=== PATIENT | male | born 1970 | race Caucasian/White ===

== ENCOUNTER 2023-12-04 05:37 | Day surgery (SDC) | payer OTHER ==
[2023-12-03 15:37] LABS: BILIRUBIN,URINE NEGATIVE (Neg); CLARITY,URINE CLEAR (Clear); COLOR,URINE YELLOW (Yellow); GLUCOSE, URINE NEGATIVE (Neg); KETONES,URINE NEGATIVE (Neg); LEUKOCYTE ESTERASE ,URINE NEGATIVE (Neg); NITRITES, URINE NEGATIVE (Neg); OCCULT BLOOD,URINE NEGATIVE (Neg); PROTEIN,URINE NEGATIVE (Neg); UROBILINOGEN,URINE 0.2 E.U/dL (0.2-1.0)
[2023-12-03 15:53] LABS: UA COLLECTION TYPE NON-SPECIFIED
[2023-12-03 16:02] LABS: BASOPHILS # (AUTO) 0.1 X10'3 (0-0.2); BASOPHILS % (AUTO) 1.1 % (0-1); EOSINOPHILS # (AUTO) 0.1 X10'3 (0-0.9); EOSINOPHILS % (AUTO) 1.6 % (0-6); LYMPHOCYTES # (AUTO) 1.7 X10'3 (1.1-4.8); LYMPHOCYTES % (AUTO) 36.4 % (21-51); MEAN CORPUSCULAR HEMOGLOBIN 32.4 PG (27.0-31.0); MEAN CORPUSCULAR HGB CONC 33.8 g/dL (33.0-36.5); MEAN CORPUSCULAR VOLUME 95.8 FL (78-98); MEAN PLATELET VOLUME 7.6 FL (7.4-10.4); MONOCYTES # (AUTO) 0.4 X10'3 (0-0.9); MONOCYTES % (AUTO) 8.7 % (2-12); NEUTROPHILS # (AUTO) 2.4 X10'3 (1.8-7.7); NEUTROPHILS % (AUTO) 52.2 % (42-75); PRE OP HEMATOCRIT 42.3 % (42.0-52.0); PRE OP HEMOGLOBIN 14.3 g/dL (14.0-17.9); PRE OP PLATELET COUNT 255 X10'3 (140-440); PRE OP WHITE BLOOD COUNT 4.7 10'3 (4.8-10.8); RED BLOOD COUNT 4.41 X10'6 (4.70-6.10); RED CELL DISTRIBUTION WIDTH 12.5 % (11.5-14.5)
[2023-12-03 16:03] LABS: ALBUMIN 3.6 G/DL (3.4-5.0); ALBUMIN/GLOBULIN RATIO 0.9 (1.1-1.5); ALKALINE PHOSPHATASE 56 IU/L (46-116); BLOOD UREA NITROGEN 9 MG/DL (7-18); BUN/CREATININE RATIO 9.8 (10.0-20.0); CALCIUM 8.3 MG/DL (8.5-10.1); CHLORIDE 98 MMOL/L (99-107); CREATININE 0.92 MG/DL (0.60-1.10); PRE OP ANION GAP 3 (8-16); PRE OP AST 17 U/L (10-37); PRE OP BILIRUB, TOTAL 0.6 MG/DL (0.0-1.0); PRE OP GLUCOSE 86 MG/DL (70-104); PRE OP POTASSIUM 3.5 MMOL/L (3.4-5.1); PRE OP SODIUM 132 MMOL/L (135-145); TOTAL CARBON DIOXIDE 31.3 MMOL/L (24-32); TOTAL PROTEIN 7.5 G/DL (6.4-8.2); eGFR 86 ML/MIN
[2023-12-03 16:07] LABS: PRE OP ALT 15 U/L (30-65)
[2023-12-04] VITALS (9 sets, daily range): BP systolic 126–134; BP diastolic 75–88; PULSE 71–81; RESP 11–16; TEMP 98.7; O2SAT 95–99
[~2023-12-04] VITALS: Ht 180.3 cm; Wt 70.0 kg
[~2023-12-04 05:37] MED LIST: LISI10TA27 PO
[2023-12-04] MEDS ORDERED: BUPIVAcaine/PF 2.5mg/ml (0.25%) 10ml vial ONE (06:43)
[2023-12-04] MEDS: famotidine 20mg tablet PO ONE (07:01)
[2023-12-04] MEDS: ringers solution, lacted 1,000 ML IV SCH (07:02)
[2023-12-04] MEDS ORDERED: fentaNYL/PF 50MCG/1 ML 2ML syringe ONE (07:18)
[2023-12-04] MEDS ORDERED: midazolam 1 mg/ML 2ml injection ONE (07:18)
[2023-12-04] MEDS ORDERED: sevoflurane 250ml liquid IH ONE (07:18)
[2023-12-04] MEDS ORDERED: ondansetron/PF 4mg/2ml inj ONE (07:19)
[2023-12-04] MEDS ORDERED: ROPIVAcaine 0.5% (5mg/ml) 30ml vial ONE ×2 (07:20→07:34)
[2023-12-04] MEDS ORDERED: LIDOcaine 2% (20mg/ml) 5ml vial ONE (07:20)
[2023-12-04] MEDS ORDERED: propofol inj 20 ML IV ONE (07:20)
[2023-12-04] MEDS ORDERED: dexamethasone sod phosphate 4mg/ml inj. ONE (07:20)
[2023-12-04] MEDS ORDERED: acetaminophen 1,000mg/100ml IV 100 ML IV ONE (07:20)
[2023-12-04] MEDS ORDERED: ceFAZolin 1000mg inj ONE ×2 (07:34)
[2023-12-04] MEDS ORDERED: ketorolac trometh. 30mg/ml inj. ONE (07:47)
[2023-12-04] MEDS: bacitracin 15gm ointment TP ONE (07:50)
[2023-12-04] MEDS ORDERED: fentaNYL/PF 50MCG/1 ML 2ML syringe IV PRN ×2 (08:05)
[2023-12-04] MEDS ORDERED: morphine 4 MG/ML inj SYRINge IV PRN (08:05)
[2023-12-04] MEDS ORDERED: labetalol 20mg/4ml (5mg/ml) syringe IV PRN (08:05)
[2023-12-04] MEDS ORDERED: ringers solution, lacted 1,000 ML IV SCH (08:05)
[2023-12-04] MEDS ORDERED: hydrALAZINE 20mg/ml inj. IV PRN (08:05)
[2023-12-04] MEDS ORDERED: ondansetron/PF 4mg/2ml inj IV PRN (08:05)
[2023-12-04] MEDS: morphine 2 MG/ML inj. syringe IV PRN (08:30)
== END 2023-12-04 09:19 | disposition home or self-care (01) ==
LOC: PAS 05:37
PROVIDERS: ATTEND Podiatrist Foot & Ankle Surgery
DX: M25.872 Other specified joint disorders, left ankle and foot (principal); M89.9 Disorder of bone, unspecified; I10 Essential (primary) hypertension; M19.90 Unspecified osteoarthritis, unspecified site; Z79.899 Other long term (current) drug therapy; Z98.890 Other specified postprocedural states
CPT/HCPCS: 27635; 28315; 36415; 80053; 81003; 82948; 85025; A6223; J0131; J0690; J1100; J1885; J2250; J2270; J2405; J2704; J2795; J3010; J3490; J7030; J7120; Z7506; Z7508; Z7512; A4618; A6253; A6449; A7000